=== PATIENT | female | born 1980 | race Caucasian/White ===

== ENCOUNTER → 2017-02-28 | Outpatient (REF) ==
[2017-02-28 18:44] LABS: THYROID STIMULATING HORMONE 1.05 uIU/mL (0.465-4.680)
== END ==
LOC: ZLAB.WCH 17:58
PROVIDERS: Nurse Practitioner Family
DX: Z01.89 Encounter for other specified special examinations (principal)

== ENCOUNTER → 2017-03-09 | Outpatient (CLI) | payer BC | LOC: BHSO 12:56 | DX: F31.81 Bipolar II disorder (principal) | CPT/HCPCS: 90791-AI ==

== ENCOUNTER → 2017-03-23 | Outpatient (CLI) | payer BC | LOC: BHSO 09:58 | DX: F33.2 Major depressive disorder, recurrent severe without psychotic features (principal) ==

== ENCOUNTER → 2017-04-30 | Outpatient (CLI) | payer BC | LOC: COL.RAD 09:43 | DX: S46.011A Strain of muscle(s) and tendon(s) of the rotator cuff of right shoulder, initial encounter (principal); M75.51 Bursitis of right shoulder | CPT/HCPCS: A9585; Q9967 ==

== ENCOUNTER → 2017-05-09 | Outpatient (CLI) | payer BC | LOC: COL.RAD 12:45 | DX: M25.511 Pain in right shoulder (principal) ==

== ENCOUNTER → 2017-05-23 | Outpatient (CLI) | payer BC | LOC: COL.RAD 08:00 | DX: M75.111 Incomplete rotator cuff tear or rupture of right shoulder, not specified as traumatic (principal) | CPT/HCPCS: J3301; Q9967 ==

== ENCOUNTER → 2018-02-27 | Outpatient (REF) | LOC: ZLAB.WCH 08:34 | DX: Z01.89 Encounter for other specified special examinations (principal) ==

== ENCOUNTER → 2023-03-05 | Outpatient (CLI) | payer BC | LOC: CANPRECLI → MC.RAD 12-29 13:30 | DX: Z12.31 Encounter for screening mammogram for malignant neoplasm of breast (principal) ==

== ENCOUNTER 2023-04-02 08:22 | Outpatient (RCR) | payer BC | END 2023-04-26 | disposition home or self-care (01) | LOC: WSST | DX: R49.8 Other voice and resonance disorders (principal) ==